=== PATIENT | female | born 1945 | race Hispanic/Latino ===

== ENCOUNTER 2023-12-06 05:00 | Observation (INO) | payer OTHER ==
[2023-12-01 10:41] LABS: BASOPHILS # (AUTO) 0.04 K/uL (0.00-0.20); BASOPHILS % (AUTO) 0.5 % (0.0-5.0); EOSINOPHILS # (AUTO) 0.14 K/uL (0.00-0.70); EOSINOPHILS % (AUTO) 1.8 % (0.0-8.0); HEMATOCRIT 37.4 % (36-48); IMMATURE GRANULOCYTE ABSOLUTE 0.04 K/uL (0-1); LYMPHOCYTES # (AUTO) 1.1 K/uL (1.0-4.8); LYMPHOCYTES % (AUTO) 14.2 % (21.0-51.0); MEAN CORPUSCULAR HEMOGLOBIN 33.2 pg (27.0-33.0); MEAN CORPUSCULAR VOLUME 97.7 fL (79-99); MONOCYTES # (AUTO) 0.5 K/uL (0.1-1.0); MONOCYTES % (AUTO) 6.6 % (3.0-13.0); NEUTROPHILS # (AUTO) 6.1 K/uL (1.8-7.7); NEUTROPHILS % (AUTO) 76.4 % (40.0-77.0); PLATELET COUNT (AUTO) 228 K/uL (130-400); RED BLOOD CELL COUNT(AUTO) 3.83 MIL/uL (4.00-5.50); WHITE BLOOD COUNT (AUTO) 7.9 K/uL (4.8-10.8)
[2023-12-01 10:43] LABS: CREATININE 0.8 mg/dL (0.5-1.0)
[2023-12-01 10:48] LABS: INR <= 0.93 (0.85-1.15); PROTHROMBIN TIME 10.9 SEC (9.6-11.6)
[2023-12-01 10:49] LABS: PARTIAL THROMBOPLASTIN TIME 30.5 SEC (26.3-35.5)
[2023-12-01 11:06] VITALS: PULSE 60; RESP 18
[2023-12-06] VITALS (27 sets, daily range): BP systolic 128–167; BP diastolic 45–80; PULSE 59–82; RESP 11–20
[~2023-12-06] VITALS: Ht 160 cm; Wt 87.1 kg
[~2023-12-06 05:00] MED LIST: AEC81 PO; ALBU90AE IH; BRIN8DRO2 OD; CARV6.25 PO; CLON0.1T PO; HYDR25TA PO; HYDR25TA67 PO; IBUP-2070 PO; LATA2.5D14 OU; LOSA100T59 PO; METF-444 PO; MONT-39 PO; NETA2.5D OD; SIMV-43 PO
[2023-12-06] MEDS: CEFAZOLIN SODIUM 2 GM VIAL ONE ×2 (05:52→15:45)
[2023-12-06] MEDS: 0.9%NACL 1000ML 1,000 ML IV ONE (05:52)
[2023-12-06] MEDS ORDERED: MIDAZOLAM HCL 1 MG/ML 2ML VIAL ONE (06:39)
[2023-12-06] MEDS ORDERED: PROPOFOL 10 MG/ML 20ML VIAL IV ONE (06:39)
[2023-12-06] MEDS ORDERED: FENTANYL CITRATE PF 50 MCG/1 ML 2ML VIAL ONE (06:40)
[2023-12-06] MEDS ORDERED: ONDANSETRON 4MG INJ ONE (06:43)
[2023-12-06] MEDS ORDERED: PHENYLEPHRINE HCL 10 MG/ML 1ML VIAL IV ONE (07:10)
[2023-12-06] MEDS ORDERED: CEFAZOLIN SODIUM 1 GM VIAL ONE ×2 (07:20→07:21)
[2023-12-06] MEDS: TRANEXAMIC ACID 1000MG/10ML ONE ×2 (07:32→08:41)
[2023-12-06] MEDS: 0.9%NACL 48.45 ML, ROPIVACAINE 0.5% 49.25ML, EPINEPH 0.5MG KETOROLAC 30MG,CLONIDINE 80MCG IV PRN (07:52)
[2023-12-06] MEDS: CEFAZOLIN SODIUM 1 GM VIAL ONE (07:52)
[2023-12-06] MEDS: GENTAMICIN SULFATE 80 MG/2 ML VIAL ONE (07:52)
[2023-12-06] MEDS: TRAMADOL HCL 50 MG TABLET ONE (12:42)
[2023-12-06] MEDS ORDERED: DEXTROSE 50%-WATER 50 ML DISP.SYRIN IV PRN (13:30)
[2023-12-06] MEDS ORDERED: GLUCAGON 1MG KIT 1 MG ML IM PRN (13:30)
[2023-12-06] MEDS: INSULIN HUMULIN R 100 UNIT/ML 3ML SQ SCH (16:30)
[2023-12-06] MEDS ORDERED: ONDANSETRON 4MG INJ IVP PRN (17:00)
[2023-12-06] MEDS ORDERED: BENZOCAINE/MENTH/CETYLPYRD CL 1 EACH LOZENGE MM PRN (17:00)
[2023-12-06] MEDS ORDERED: CLONIDINE HCL 0.1 MG TABLET PO PRN (17:00)
[2023-12-06] MEDS ORDERED: LACTULOSE 20 GM/30 ML UDCUP PO PRN (17:00)
[2023-12-06] MEDS ORDERED: DIPHENOXYLATE HCL/ATROPINE 2.5/0.025 MG TAB PO PRN (17:00)
[2023-12-06] MEDS ORDERED: ALBUTEROL 0.083% 2.5 MG/3 ML INH IH PRN (17:00)
[2023-12-06] MEDS ORDERED: ACETAMINOPHEN 325 MG TAB PO PRN ×2 (17:00)
[2023-12-06] MEDS ORDERED: DiphenhydrAMINE HCL 50 MG/ML VIAL IM PRN (17:00)
[2023-12-06] MEDS ORDERED: ACETAMINOPHEN 325 MG TAB PO SCH (17:00)
[2023-12-06] MEDS ORDERED: MAG/ALUM/SIMETH 30 ML UDCUP PO PRN (17:00)
[2023-12-06] MEDS: 0.9%NACL 1000ML 1,000 ML IV SCH (17:22)
[2023-12-06] MEDS: HYDROMORPH /0.9% NACL/PF PCA 50 ML IV PRN (17:34)
[2023-12-06] MEDS: TRAMADOL HCL 50 MG TABLET PO PRN (17:47)
[2023-12-06] MEDS: MONTELUKAST SODIUM 10 MG TAB PO SCH (20:45)
[2023-12-06] MEDS: SIMVASTATIN 20 MG TABLET PO SCH (20:45)
[2023-12-06] MEDS: HYDRALAZINE 25MG TABLET PO SCH (20:46)
[2023-12-06] MEDS: CARVEDILOL 6.25 MG TABLET PO SCH (20:46)
[2023-12-06] MEDS: LATANOPROST 2.5 ML DROPS OU SCH (20:49)
[2023-12-06] MEDS: BRINZOLAMIDE OD SCH (21:00)
[2023-12-06] MEDS: BRIMONIDINE TART OD SCH (21:00)
[2023-12-06] MEDS: METFORMIN HCL 500 MG TABLET PO SCH (21:00)
[2023-12-06] MEDS: CEFAZOLIN SODIUM 1 GM VIAL IVPB SCH (23:14)
[2023-12-07] VITALS: BP 150/72; PULSE 91; RESP 20
[2023-12-07 00:05] VITALS: PULSE 81; RESP 20; O2SAT 96
[2023-12-07 03:52] LABS: HEMATOCRIT 30.6 % (36-48); MEAN CORPUSCULAR HEMOGLOBIN 33.1 pg (27.0-33.0); MEAN CORPUSCULAR HGB CONC 33.3 g/dL (32.0-36.0); MEAN CORPUSCULAR VOLUME 99.4 fL (79-99); RED BLOOD CELL COUNT(AUTO) 3.08 MIL/uL (4.00-5.50); RED CELL DISTRIBUTION WIDTH 13.2 % (11.0-15.5); WHITE BLOOD COUNT (AUTO) 8.3 K/uL (4.8-10.8)
[2023-12-07 04:00] VITALS: BP 138/69; PULSE 79; RESP 20
[2023-12-07 04:13] LABS: ALBUMIN 2.8 g/dL (3.5-5.0); BILIRUBIN,TOTAL 0.4 mg/dL (0.2-1.0); CREATININE 0.8 mg/dL (0.5-1.0); MAGNESIUM 1.3 mg/dL (1.80-2.40); POTASSIUM 3.8 mmol/L (3.5-5.1)
[2023-12-07 08:00] VITALS: BP 162/74; PULSE 69; RESP 18
[2023-12-07 08:30] VITALS: O2SAT 96
[2023-12-07] MEDS: LOSARTAN 100 MG TABLET PO SCH (08:35)
[2023-12-07] MEDS: HYDROCHLOROTHIAZIDE 25 MG TABLET PO SCH (08:35)
[2023-12-07] MEDS: RIVAROXABAN 10 MG TABLET PO SCH (08:36)
[2023-12-07] MEDS: NETARSUDIL MESYLATE OD SCH (08:43)
[2023-12-07] MEDS ORDERED: POTASSIUM CHLORIDE 20MEQ/100ML 100 ML IV PRN (10:00)
[2023-12-07] MEDS ORDERED: KCL 20 MEQ ERTAB PO PRN (10:00)
[2023-12-07] MEDS: MAGNESIUM 2GM PREMIX 50ML 50 ML IV PRN (11:10)
[2023-12-07 12:00] VITALS: BP 149/68; PULSE 61; RESP 16
[2023-12-07] MEDS: POTASSIUM CHLORIDE 10% ELIXIR 20 MEQ/15 ML UDCUP PO PRN (12:01)
== END 2023-12-07 16:45 | disposition home or self-care (01) ==
LOC: DAH 05:00 → DAHIP 05:01 → DAH 05:01 → 4CH 16:30
PROVIDERS: ADMIT Orthopaedic Surgery; ATTEND Orthopaedic Surgery
DX: M17.11 Unilateral primary osteoarthritis, right knee (principal); E11.9 Type 2 diabetes mellitus without complications; E78.5 Hyperlipidemia, unspecified; I10 Essential (primary) hypertension; I25.10 Atherosclerotic heart disease of native coronary artery without angina pectoris; D58.9 Hereditary hemolytic anemia, unspecified; Z95.0 Presence of cardiac pacemaker; Z96.651 Presence of right artificial knee joint; Z79.899 Other long term (current) drug therapy; Z98.890 Other specified postprocedural states; Z86.2 Personal history of diseases of the blood and blood-forming organs and certain disorders involving the immune mechanism; Z88.8 Allergy status to other drugs, medicaments and biological substances; Z79.82 Long term (current) use of aspirin
CPT/HCPCS: 80048; 85025; 85610; 85730; 36415 ×2; 93005; 87641; 27447; 96365; 96366 ×3; 82948 ×6; 97161; 97116 ×3; 96375; 83735; 80053; 85027; 97530 ×2; A6260; G0378 ×22; A4510; A4663; J7120; A4215 ×2; A4649 ×4; J0690 ×7; J3490 ×2; J7030 ×2; J0171; J1580; J2250; J2704; J2405; J1885; J2795; J2371; J0735; A6223; C1763 ×2; C1776; A4930; A5120; A4223; A4222; A4221; A6450; J3475; J3010